=== PATIENT | male | born 1965 | race Caucasian/White ===

== ENCOUNTER → 2018-05-20 | Outpatient (CLI) | payer OTHER ==
[2018-05-20 18:17] LABS: Source, Urine Clean Catch
[2018-05-20 18:20] LABS: Bacteria Few /hpf; Red Blood Cells, Urine TNTC /hpf (0-2); Squamous Epithelial Cells Few /hpf (Few)
== END | disposition home or self-care (01) ==
LOC: LAB EV 18:12 → LAB SHORT 18:12
PROVIDERS: Physician Assistant
DX: R30.0 Dysuria (principal)
CPT/HCPCS: 81015; 87086

== ENCOUNTER 2018-06-12 09:30 | Emergency (ER) | payer OTHER ==
[~2018-06-12] VITALS: Ht 172.7 cm; Wt 63.5 kg
[2018-06-12 09:52] LABS: BASOPHILS ABSOLUTE AUTO 0.07 K/mm3 (0.00-0.23); BASOPHILS PERCENT AUTO 1 % (0-2); EOSINOPHILS ABSOLUTE AUTO 0.17 K/mm3 (0.00-0.68); EOSINOPHILS PERCENT AUTO 2 % (0-6); Hematocrit 43.1 % (37.0-53.0); Hemoglobin 14.1 g/dL (13.5-17.5); IMMATURE GRAN ABSOLUTE AUTO 0.05 K/mm3 (0.00-0.10); IMMATURE GRAN PERCENT AUTO 1 % (0-1); LYMPHOCYTES ABSOLUTE AUTO 2.28 K/mm3 (0.84-5.20); LYMPHOCYTES PERCENT AUTO 21 % (21-46); MONOCYTES ABSOLUTE AUTO 0.95 K/mm3 (0.16-1.47); MONOCYTES PERCENT AUTO 9 % (4-13); Mean Corpuscular HGB 29.9 pg (26.0-34.0); Mean Corpuscular HGB Conc 32.7 g/dL (31.5-36.5); Mean Corpuscular Volume 92 fL (80-100); Mean Platelet Volume 9.4 fL (9.1-12.4); NEUTROPHILS ABSOLUTE AUTO 7.48 K/mm3 (1.96-9.15); NEUTROPHILS PERCENT AUTO 68 % (41-73); Platelet Count 224 K/mm3 (150-400); RDW Coefficient Variation 14.5 % (11.7-14.2); Red Blood Cell Count 4.71 M/mm3 (4.30-5.90)
[2018-06-12 10:14] LABS: Alanine Aminotransfer (ALT/SGP 36 U/L (12-78); Albumin, Blood 3.8 g/dL (3.4-5.0); Alk Phos 85 U/L (50-136); Anion Gap 10 mmol/L (6-16); Aspartate Aminotrans (AST/SGOT 21 U/L (12-37); Bilirubin, Total 0.4 mg/dL (0.1-1.0); Blood Urea Nitrogen 23 mg/dL (8-24); Bun/Creatinine Ratio 19.5 (12.0-20.0); CO2, Blood 23 mmol/L (21-32); Calcium, Blood 9.1 mg/dL (8.5-10.1); Chloride, Blood 108 mmol/L (98-108); Creatinine, Blood 1.18 mg/dL (0.60-1.20); Glomerular Filtration Rate >60 (60-); Glucose, Blood 189 mg/dL (70-99); Potassium, Blood 3.5 mmol/L (3.5-5.5); Sodium, Blood 141 mmol/L (136-145); Total Protein, Blood 7.8 g/dL (6.4-8.2)
== END 2018-06-12 11:35 | disposition short-term general hospital (02) ==
LOC: ER 09:30
PROVIDERS: Internal Medicine
DX: T23.342A Burn of third degree of multiple left fingers (nail), including thumb, initial encounter (principal); T23.341A Burn of third degree of multiple right fingers (nail), including thumb, initial encounter; S00.03XA Contusion of scalp, initial encounter; T31.0 Burns involving less than 10% of body surface; W86.1XXA Exposure to industrial wiring, appliances and electrical machinery, initial encounter; Z23 Encounter for immunization
CPT/HCPCS: 70450; 73130; 80053; 85025; 90714; 93005; 93010; J1170; J2405; J7120

== ENCOUNTER 2018-12-15 08:09 | Day surgery (SDC) | payer OTHER ==
[~2018-12-15] VITALS: Ht 172.7 cm; Wt 62.8 kg
[2018-12-15] MEDS ORDERED: LOSARTAN-HCTZ1 EACH (09:11)
[2018-12-15] MEDS ORDERED: ABAT250V (09:11)
== END 2018-12-15 10:30 | disposition home or self-care (01) ==
LOC: ORSCSDS 08:09
PROVIDERS: Internal Medicine Gastroenterology
PROC: 0DBL8ZX Excision of Transverse Colon, Via Natural or Artificial Opening Endoscopic, Diagnostic (ICD-10-PCS; principal; 2018-12-15 09:45)
DX: Z12.11 Encounter for screening for malignant neoplasm of colon (principal); D12.3 Benign neoplasm of transverse colon; K57.30 Diverticulosis of large intestine without perforation or abscess without bleeding; K64.8 Other hemorrhoids; Z87.891 Personal history of nicotine dependence; J45.909 Unspecified asthma, uncomplicated; Z79.899 Other long term (current) drug therapy
CPT/HCPCS: 88305; J7120

== ENCOUNTER 2019-10-13 09:42 | Day surgery (SDC) | payer OTHER ==
[~2019-10-13] VITALS: Ht 172.7 cm; Wt 63.0 kg
[~2019-10-13 09:42] MED LIST: ABAT250V; AMLO10 PO; LOSARTAN-HCTZ1 EACH; ZESTORETIC 20-1 EACH PO
[2019-10-13] MEDS ORDERED: CLOP75 PO (16:41)
--- NOTE | 2019-10-13 18:27 | NUR ---
DISCHARGE PT AMBULATES TO RESTROOM WITH OUT ANY COMPLICATIONS. R FEMORAL SITE WITH NO BLEEDING, OOZING OR HEMATOMA. PT DENIES PAIN. PT STATES UNDERSTANDING OF DC INSTRUCTIONS AND SITE CARE INSTRUCTIONS. PT DENIES ANY QUESTIONS OR CONCERNS UPON DISCHARGE. IV DCD WITH CATH IN TACT. PT DCD IN WHEELCHAIR TO MAINENTERENCE WITH SISTER TO AWAIT RIDE FROM [facility]. PT STATES UNDERSTANDING OF TAKING NEW RX FOR PLAVIX.
== END 2019-10-13 23:06 | disposition home or self-care (01) ==
LOC: MHTC 09:42
DX: I70.213 Atherosclerosis of native arteries of extremities with intermittent claudication, bilateral legs (principal)
CPT/HCPCS: 37227; 75625; 75716; 75774; 85347; 99152; 99153; C1714; C1725; C1760; C1769; C1874; C1884; C1887; C1894; C2623; J1644; J2250; J2997; J3010; J7030; Q9967

== ENCOUNTER 2019-10-20 09:53 | Day surgery (SDC) | payer OTHER ==
[~2019-10-20] VITALS: Ht 165.1 cm; Wt 64.1 kg
[~2019-10-20 09:53] MED LIST changes: +CLOP75 PO
[2019-10-20 11:06] LABS: BASOPHILS ABSOLUTE AUTO 0.06 K/mm3 (0.00-0.23); BASOPHILS PERCENT AUTO 1 % (0-2); EOSINOPHILS ABSOLUTE AUTO 0.42 K/mm3 (0.00-0.68); EOSINOPHILS PERCENT AUTO 6 % (0-6); Hematocrit 41.5 % (37.0-53.0); Hemoglobin 13.1 g/dL (13.5-17.5); IMMATURE GRAN ABSOLUTE AUTO 0.01 K/mm3 (0.00-0.10); IMMATURE GRAN PERCENT AUTO 0 % (0-1); LYMPHOCYTES ABSOLUTE AUTO 1.52 K/mm3 (0.84-5.20); LYMPHOCYTES PERCENT AUTO 20 % (21-46); MONOCYTES ABSOLUTE AUTO 0.83 K/mm3 (0.16-1.47); MONOCYTES PERCENT AUTO 11 % (4-13); Mean Corpuscular HGB 27.7 pg (26.0-34.0); Mean Corpuscular HGB Conc 31.6 g/dL (31.5-36.5); Mean Corpuscular Volume 88 fL (80-100); NEUTROPHILS ABSOLUTE AUTO 4.65 K/mm3 (1.96-9.15); NEUTROPHILS PERCENT AUTO 62 % (41-73); Platelet Count 251 K/mm3 (150-400); RDW Standard Deviation 41.9 fL (35.1-46.3); Red Blood Cell Count 4.73 M/mm3 (4.30-5.90); White Blood Cell Count 7.49 K/mm3 (4.00-11.30)
[2019-10-20 11:15] LABS: Prothrombin Time Results 10.7 Sec (9.7-11.5)
[2019-10-20 11:24] LABS: Bun/Creatinine Ratio 22.1 (12.0-20.0); Calcium, Blood 9.2 mg/dL (8.5-10.1); Creatinine, Blood 1.4 mg/dL (0.60-1.20); Potassium, Blood 4.6 mmol/L (3.5-5.5)
--- NOTE | 2019-10-20 19:24 | NUR ---
REPORT TO HELEN WOOD TO ASSUME CARE
--- NOTE | 2019-10-20 19:25 | NUR ---
EXTENDED RECOVERY PT ARRIVED TO ICU THIS AFTERNOON FOR POST CATH RECOVERY. PT ALERT, ORIENTED AND FOLLOWING DIRECTIONS. VITALS STABLE. ASSESSMENT UNCHANGED FROM ARRIVAL. DR. KELLEY ROUNDED ON PATIENT SHORTLY AFTER ARRIVAL AND PT AND SISTER AGREEABLE TO PLAN FOR RECOVERY AND DISCHARGE HOME THIS EVENING IF STABLE. PT'S SISTER PLANS TO RETURN BY 8 PM. PT IN SUPINE POSITION SINCE ARRIVAL FOR POSTOP PRECAUTIONS. EDUCATED AND AGREEABLE. BOTH ACCESS SITES STABLE AND UNCHANGED. BEDSIDE REPORT WITH HELEN WOOD INCLUDED VISUALIZATION AND PALPATATION OF BOTH SITES.
--- NOTE | 2019-10-20 20:25 | NUR ---
DISCHARGE HOME ASSUMED CARE OF PT AT 1900. PT LAYING IN BED, AWAKE, ALERT, AND ORIENTED. PT DENIES PAIN OR DISCOMFORT. PT ON ROOM AIR, VITAL SIGNS STABLE. LEFT GROIN ACCESS SITE WITH SMALL 10CM HEMATOMA THAT IS UNCHANGED PER REPORT. SITE IS CLEAN AND DRY WITH OPSITE IN PLACE. LEFT POSTERIOR TIBIAL ACCESS SITE C/D/I. PT DANGLED AT BEDSIDE, SITE REMAINED STABLE. PT THEN AMBULATED IN UNIT WITHOUT DIFFICULTY. GROIN SITE REMAINS STABLE. DISCHARGE INSTRUCTIONS AND MEDS REVIEWED WITH PT AND PT VERBALIZED UNDERSTANDING. IV TO LAC DC'D. PT ESCORTED TO WAITING ROOM VIA WHEEL CHAIR TO WAIT FOR RIDE HOME AT 2024. ALL BELONGINGS TAKEN WITH PT.
== END 2019-10-20 20:25 | disposition home or self-care (01) ==
LOC: MHTC 09:53 → ICUW 15:41 → MHTC 20:25 → ICUW 20:25
PROVIDERS: Radiology Diagnostic Radiology
PROC: B41GZZZ Fluoroscopy of Left Lower Extremity Arteries (ICD-10-PCS; principal; 2019-10-20)
PROC: B41FZZZ Fluoroscopy of Right Lower Extremity Arteries (ICD-10-PCS; 2019-10-20)
DX: I70.213 Atherosclerosis of native arteries of extremities with intermittent claudication, bilateral legs (principal)
CPT/HCPCS: 37224; 75710; 76937; 80048; 85025; 85347; 85610; 99152; 99153; C1725; C1769; C1773; C1887; C1894; C2623; J1644; J2250; J3010; J7030; Q9967

== ENCOUNTER 2020-02-07 16:54 | Emergency (ER) | payer OTHER ==
[~2020-02-07] VITALS: Ht 182.9 cm; Wt 77.1 kg
== END 2020-02-07 18:02 | disposition home or self-care (01) ==
LOC: ER 16:54
DX: S01.81XA Laceration without foreign body of other part of head, initial encounter (principal); Z23 Encounter for immunization; Z79.899 Other long term (current) drug therapy; Z79.02 Long term (current) use of antithrombotics/antiplatelets; W01.190A Fall on same level from slipping, tripping and stumbling with subsequent striking against furniture, initial encounter
CPT/HCPCS: 90471; 90714; 99282-25

== ENCOUNTER 2020-02-08 13:02 | Inpatient (IN) | payer OTHER ==
[~2020-02-08] VITALS: Ht 165.1 cm; Wt 62.9 kg
--- NOTE | 2020-02-08 13:50 | NUR ---
PT WATCHING TV; CALL LIGHT IN REACH.
[2020-02-08 14:05] LABS: BASOPHILS ABSOLUTE AUTO 0.06 K/mm3 (0.00-0.23); BASOPHILS PERCENT AUTO 1 % (0-2); EOSINOPHILS ABSOLUTE AUTO 0.14 K/mm3 (0.00-0.68); EOSINOPHILS PERCENT AUTO 2 % (0-6); Hematocrit 42.2 % (37.0-53.0); Hemoglobin 13.3 g/dL (13.5-17.5); IMMATURE GRAN ABSOLUTE AUTO 0.01 K/mm3 (0.00-0.10); IMMATURE GRAN PERCENT AUTO 0 % (0-1); LYMPHOCYTES ABSOLUTE AUTO 1.63 K/mm3 (0.84-5.20); LYMPHOCYTES PERCENT AUTO 23 % (21-46); MONOCYTES ABSOLUTE AUTO 0.76 K/mm3 (0.16-1.47); MONOCYTES PERCENT AUTO 11 % (4-13); Mean Corpuscular HGB 27.6 pg (26.0-34.0); Mean Corpuscular HGB Conc 31.5 g/dL (31.5-36.5); Mean Corpuscular Volume 88 fL (80-100); Mean Platelet Volume 9.2 fL (9.1-12.4); NEUTROPHILS ABSOLUTE AUTO 4.42 K/mm3 (1.96-9.15); NEUTROPHILS PERCENT AUTO 63 % (41-73); Platelet Count 227 K/mm3 (150-400); RDW Coefficient Variation 14.5 % (11.7-14.2); RDW Standard Deviation 46.4 fL (35.1-46.3); Red Blood Cell Count 4.82 M/mm3 (4.30-5.90); White Blood Cell Count 7.02 K/mm3 (4.00-11.30)
[2020-02-08 14:22] LABS: Bun/Creatinine Ratio 23.9 (12.0-20.0); Calcium, Blood 8.9 mg/dL (8.5-10.1); Creatinine, Blood 2.13 mg/dL (0.60-1.20); Potassium, Blood 4.2 mmol/L (3.5-5.5)
[2020-02-08 14:24] LABS: International Normalized Ratio 0.99; Prothrombin Time Results 10.6 Sec (9.7-11.5)
--- NOTE | 2020-02-08 18:17 | NUR ---
ADMIT PT ARRIVED TO ICU 12 FROM [facility] VIA BED AT 1800. PT IS AWAKE, ALERT, AND ORIENTED. PT ANSWERS QUESTIONS APPROPRIATELY. DENIES PAIN OR NUMBNESS OR TINGLING. EXTREMITIES COOL. ARTERIAL SHEATH IN PLACE TO LEFT FEMORAL SITE WITH TPA INFUSING AT 1 MG/HR. PULSE STRONG TO LEFT FOOT. RIGHT PEDAL ACCESS SITE IS C/D/I WITH MARGE PAD IN PLACE. VITAL SIGNS STABLE. PT ON ROOM AIR. PT USED URINAL WELL TO VOID. GENNY MARRERO IN ROOM TO SEE PT AT THIS TIME. WILL CONTINUE TO MONITOR.
[2020-02-08 18:39] LABS: Source, Urine Clean Catch
[2020-02-08 18:49] LABS: Bilirubin, Urine Neg (Neg); Blood, Urine Neg (Neg); Glucose Qualitative, Urine Neg (Neg); Ketones, Urine 1+ (Neg); Leukocyte Esterase, Urine Neg (Neg); Nitrite, Urine Neg (Neg); Protein, Urine Neg (Neg); Urobilinogen, Urine NORM (Normal)
--- NOTE | 2020-02-08 19:00 | NUR ---
ASSUMED CARE ASSUMED CARE OF PATIENT. AWAKE AND ALERT. ORIENTED X 3 AND COOPERATIVE. ASSESSED BILATERAL LOWER LIMBS WITH OFF-GOING RN. LLE WITH FEMORAL ARTERIAL SHEATH IN PLACE. FAINT PEDAL PULSE NOTED. LLE IS PALE, BUT WARM. RLE PEDAL PULSE IS DIFFICULT TO ASSESS- WILL CHECK WITH DOPPLER. RLE IS PALE AND SLIGHTLY COOL. C/O TINGLING IN BOTH FEET AND STATES THAT THIS IS NOT NEW. DENIES C/O PAIN AT THIS TIME. RIGHT POSTERIOR TIBIAL DRSG D/I. ALTEPLASE INFUSING AT 1MG/HR VIA SHEATH. VOIDING WITHOUT DIFFICULTY. C/O BEING HUNGRY- WILL ORDER DINNER TRAY. MONITOR SHOWS SB-SR, RATE 55-60s. BP STABLE. RA SATS STABLE. SEE SHIFT ASSESSMENT FOR FULL ASSESSMENT.
--- NOTE | 2020-02-08 19:20 | NUR ---
HEPARIN GTT HEPARIN GTT STARTED AT 6CC/HR PER ORDER. LR 1L IV BOLUS STARTED.
[2020-02-08 19:26] LABS: Magnesium, Blood 2.5 mg/dL (1.6-2.4); Phosphorus, Blood 3.5 mg/dL (2.5-4.9)
[2020-02-08 19:27] LABS: Appearance, Urine Clear (Clear); Color, Urine Yellow (P-Yellow)
[2020-02-09 05:57] LABS: BASOPHILS ABSOLUTE AUTO 0.08 K/mm3 (0.00-0.23); BASOPHILS PERCENT AUTO 1 % (0-2); EOSINOPHILS ABSOLUTE AUTO 0.15 K/mm3 (0.00-0.68); EOSINOPHILS PERCENT AUTO 2 % (0-6); Hematocrit 42.7 % (37.0-53.0); Hemoglobin 13.9 g/dL (13.5-17.5); IMMATURE GRAN ABSOLUTE AUTO 0.03 K/mm3 (0.00-0.10); IMMATURE GRAN PERCENT AUTO 0 % (0-1); LYMPHOCYTES ABSOLUTE AUTO 0.98 K/mm3 (0.84-5.20); LYMPHOCYTES PERCENT AUTO 11 % (21-46); MONOCYTES ABSOLUTE AUTO 0.83 K/mm3 (0.16-1.47); MONOCYTES PERCENT AUTO 9 % (4-13); Mean Corpuscular HGB 28.3 pg (26.0-34.0); Mean Corpuscular HGB Conc 32.6 g/dL (31.5-36.5); Mean Corpuscular Volume 87 fL (80-100); Mean Platelet Volume 9.3 fL (9.1-12.4); NEUTROPHILS ABSOLUTE AUTO 6.94 K/mm3 (1.96-9.15); NEUTROPHILS PERCENT AUTO 77 % (41-73); Platelet Count 184 K/mm3 (150-400); RDW Coefficient Variation 14.6 % (11.7-14.2); RDW Standard Deviation 46.4 fL (35.1-46.3); Red Blood Cell Count 4.92 M/mm3 (4.30-5.90); White Blood Cell Count 9.01 K/mm3 (4.00-11.30)
--- NOTE | 2020-02-09 06:16 | NUR ---
SHIFT SUMMARY NO ACUTE CHANGES DURING NOC. SLEPT WHEN UNDISTURBED. ROUSES EASILY TO STIMULI. ALERT AND ORIENTED. NEURO CHECKS WNL. DENIES C/O PAIN. DENIES C/O LE TINGLING THIS AM. LEFT FEMORAL ARTERIAL SHEATH IN PLACE- SITE IS SOFT AND DRSG IS C/D/I. TPA INFUSING @ 0.5MG/HR PER ORDER. LLE IS WARM AND PINK. PEDAL PULSE STRONG. RLE WITH DRSG TO POSTERIOR TIBIAL- SMALL AMOUNT OF OLD BLOOD NOTED ON MARGE DRSG. RIGHT PEDAL PULSE WITH DOPPLER. FOOT IS WARMER THIS AM, BUT STILL PALE. HEPARIN INFUSING @ 6CC/HR PER ORDER VIA PERIPHERAL IV. LR AT 75CC/HR. VOIDS WITHOUT DIFFICULTY. NPO OF NOW FOR AM INCIDENT RESPONSE LEAD PROCEDURE. WILL REPORT TO DAY SHIFT RN WHEN AVAILABLE.
[2020-02-09 06:17] LABS: Alanine Aminotransfer (ALT/SGP 36 U/L (12-78); Albumin, Blood 3.7 g/dL (3.4-5.0); Alk Phos 97 U/L (50-136); Anion Gap 8 mmol/L (6-16); Aspartate Aminotrans (AST/SGOT 18 U/L (12-37); Bilirubin, Total 0.6 mg/dL (0.1-1.0); Blood Urea Nitrogen 33 mg/dL (8-24); Bun/Creatinine Ratio 23.1 (12.0-20.0); CHOL/HDL RATIO 2.6; CO2, Blood 22 mmol/L (21-32); Calcium, Blood 8.8 mg/dL (8.5-10.1); Chloride, Blood 106 mmol/L (98-108); Cholesterol 184 mg/dL (50-200); Creatinine, Blood 1.43 mg/dL (0.60-1.20); Globulin, Blood 3.8 g/dL (2.2-4.0); Glomerular Filtration Rate 55 (60-); Glucose, Blood 104 mg/dL (70-99); HDL Cholesterol 72 mg/dL (>39); LDL/HDL RATIO 1.3; Low Density Lipoprotein Chol 93 mg/dL (0-110); Potassium, Blood 4.4 mmol/L (3.5-5.5); Sodium, Blood 136 mmol/L (136-145); Total Protein, Blood 7.5 g/dL (6.4-8.2); Triglycerides 93 mg/dL (30-160); Very Low Density Lipoprot Chol 18 mg/dL (6-32)
--- NOTE | 2020-02-09 08:09 | NUR ---
INITIAL ASSESSMENT PATIENT ALERT AND ORIENTED X 4, FORGETFUL AT TIMES. PATIENT NEEDS REMINDERS ABOUT ACTIVITY RESTRICTIONS DUE TO L ARTERIAL FEM SHEATH IN PLACE. UPON ENTERING ROOM THIS MORNING, WITH GENERAL UTILITY MACHINE OPERATOR RN FOR REPORT, PATIENT SLEEPING ON STOMACH. PATIENT RE-EDUCATED ON NEED TO STAY ON BACK WITHOUT LIFTING HEAD OR LEGS. NO BLEEDING, BRUISING, HEMATOMA NOTED TO L FEM SITE. PATIENT DENIES PAIN OR N/T. PATIENT AFEBRILE. PATIENT SATTING 90% AND GREATER ON RA. LUNGS COARSE AND WHEEZY THROUGHOUT. PATIENT HAS OCCASIONAL, DRY COUGH AND STATES THAT HE HAS SAME COUGH EVERY AM. PATIENT IN SR, HR IN THE 60S. SBP 140S TO 160S. RADIAL PULSES 2+ IN STRENGTH. L PEDAL PULSE 2+ IN STRENGTH, L TIBIAL PULSE FAINT. R PEDAL AND TIBIAL PULSES DOPPLER. BILAT FEET PINK AND WARM WITH CAP REFILL LESS THAN 3 SECONDS. ABDOMEN SOFT, NONDISTENDED, NONTENDER, WITH HYPERACTIVE BS NOTED. LAST BM DOCUMENTED YESTERDAY. PATIENT NPO WILL BE HEADING BACK TO OXYHYDROGEN WELDER TODAY. PATIENT USING BEDSIDE URINAL INDEPENDENTLY; URINE LIGHT YELLOW IN COLOR. SKIN FLUSHED. R THUMB AND INDEX FINGERS AMPUTATED. LACERATION/ ABRASION NOTED TO FOREHEAD AND ABRASIONS TO RLE; PATIENT STATES THAT HIS DOGS LEASH GOT WRAPPED AROUND HIM AT HOME AND HE FELL. TPA INFUSING AT 0.5 MG/ HOUR, LR AT 75 MLS/ HOUR AND HEPARIN INFUSING AT 6 MLS/ HOUR. BED LOW, CALL LIGHT IN REACH. WILL CONTINUE TO MONITOR PATIENT FREQUENTLY THROUGHOUT SHIFT.
--- NOTE | 2020-02-09 10:05 | NUR ---
DR. KELLEY CALLED TO ASK ABOUT TPA. INFORMED THAT TPA HAS BEEN INFUSING AT 0.5 MG/ HOUR FOR [address] KELLEY STATED TO STOP TPA AND CHANGE HEPARIN INFUSION FROM PERIPHERAL SITE TO FEM SHEATH. UNSURE WHEN HE WILL BE ABLE TO TAKE PATIENT TO SOLAR DESIGNER/INSTALLER TODAY.
--- NOTE | 2020-02-09 10:15 | NUR ---
DR. MORGAN IN TO SEE PATIENT. INFORMED OF PATIENT'S SBP IN 160S. INFORMED THAT PRN LABETALOL JUST GIVEN. INFORMED ABOUT CONVERSATION WITH DR. KELLEY AND STOPPING OF TPA AND CHANGING HEPARIN FROM PERIPHERAL SITE TO SHEATH. DRESSING TO FOREHEAD REMOVED, AREA CLEANSED, STERI STRIPS AND NEW DRESSING APPLIED.
--- NOTE | 2020-02-09 10:50 | NUR ---
PATIENT TAKEN TO GROUND OPERATIONS SUPERVISOR.
--- NOTE | 2020-02-09 13:10 | NUR ---
PATIENT BACK FROM [facility]REL RIFLER BROACH. ANGIOSEAL AND TEGADERM TO LEFT FEM SITE. SITE WNL- NO BLEEDING, BRUISING, HEMATOMA NOTED. NO CHANGES NOTED TO BLES FROM BEFORE BARREL RIFLER BROACH ASSESSMENT. PATIENT HAS NO COMPLAINTS AT THIS TIME. HEPARIN DC'D. DR. KELLEY DOWN TO SPEAK WITH NURSE. DR. KELLEY STATED PATIENT CAN GO HOME AND WILL NEED OUTPATIENT PROCEDURE. DR. KELLEY STATED TO START PATIENT ON XARELTO 15 MG PO BID NOW. WILL CONTINUE TO MONITOR.
--- NOTE | 2020-02-09 14:24 | NUR ---
SISTER, MARY KATE, CALLED AND UPDATED ON PATIENT STATUS. MARY KATE WILL BE THE ONE TO PICK PATIENT UP THIS AFTERNOON IF FEM SITE REMAINS STABLE.
[2020-02-09] MEDS ORDERED: XARELTO15 MG PO (14:49)
[2020-02-09] MEDS ORDERED: SENN187 PO (14:49)
--- NOTE | 2020-02-09 15:51 | NUR ---
DR. MORGAN CALLED AND INFORMED THAT PATIENT NOW VOIDING CRANBERRY COLORED URINE AFTER RETURN FROM [employer] ABATEMENT WORKER. DOCTOR STATED TO HAVE PATIENT INFORM PCP UPON FOLLOW-UP WITHIN A WEEK THAT HE HAD BLOOD IN URINE. DOCTOR STATED SHE IS NOT CONCERNED ABOUT URINE COLOR CHANGE AT THIS TIME.
--- NOTE | 2020-02-09 16:27 | NUR ---
SHIFT SUMMARY PATIENT REMAINED ALERT AND ORIENTED, ALTHOUGH FORGETFUL AT TIMES. PATIENT REMAINED AFEBRILE. PATIENT HAD NO COMPLAINTS OF PAIN THIS SHIFT. PATIENT REMAINED SATTING 90% AND GREATER ON RA. LUNGS REMAINED COARSE AND WHEEZY THROUGHOUT. PATIENT REMAINED IN SB TO SR, HR 50S TO 60S. SBP RANGED FROM 130S TO 180S. BP STABLE AT THIS TIME. PATIENT GIVEN PRN LABETOLOL X1 BY THIS NURSE. RIGHT PEDAL PULSE REMAINS DOPPLER. R FOOT REMAINS WARM, PINK AND WITH CAP REFILL LESS THAN 3 SECONDS. L TIBIAL PULSE 1+ AND L PEDAL PULSE 2+. L FOOT WARM, PINK, WITH CAP REFILL LESS THAN 3 SECONDS. PATIENT ABLE TO EAT AFTER RETURNING FROM MUNITIONS WORKER, HOWEVER DID NOT HAVE MUCH OF AN APPETITE. PATIENT DID NOT HAVE BM THIS SHIFT. PATIENT VOIDING LIGHT YELLOW URINE INTO URINAL BEFORE MUNITIONS WORKER AND CRANBERRY COLORED AFTER RETURNING FROM MUNITIONS WORKER. DR. MOGRAN INFORMED AND INSTRUCTED TO HAVE PATIENT INFORM PCP WHEN SEES THIS WEEK. L FEM SHEATH REMOVED IN MUNITIONS WORKER. ANGIOSEAL AND TEGADERM PLACED BY MUNITIONS WORKER. SITE REMAINS WNL- NO BLEEDING, BRUISING, HEMATOMA NOTED. FOREHEAD LACERATION DRESSING REMAINS C/D/I. IV REMOVED. PATIENT GIVEN ALL DISCHARGE INFORMATION. GROIN SURGICAL SITE CARE INFO GIVEN. XARELTO INFORMATION GIVEN IS NEW MEDICATION. FAMILY'S NEIGHBOR COMING TO PICK PATIENT UP AT THIS TIME.
--- NOTE | 2020-02-09 16:40 | NUR ---
PATIENT TAKEN OUT TO FAMILY'S NEIGHBOR, WAITING OUTIDE OF PATIENT ENTRANCE. PATIENT SUCCESSFULLY DISCHARGED.
== END 2020-02-09 16:46 | disposition home or self-care (01) | DRG 253 ==
LOC: MHTC 13:02 → ICUW 18:18
PROVIDERS: Nurse Practitioner Acute Care; Radiology Diagnostic Radiology; ADMIT Internal Medicine
PROC: 047K341 Dilation of Right Femoral Artery with Drug-eluting Intraluminal Device, using Drug-Coated Balloon, Percutaneous Approach (ICD-10-PCS; principal; 2020-02-08)
PROC: B41F1ZZ Fluoroscopy of Right Lower Extremity Arteries using Low Osmolar Contrast (ICD-10-PCS; 2020-02-08)
PROC: 3E05317 Introduction of Other Thrombolytic into Peripheral Artery, Percutaneous Approach (ICD-10-PCS; 2020-02-09)
DX: I70.211 Atherosclerosis of native arteries of extremities with intermittent claudication, right leg (principal); I74.3 Embolism and thrombosis of arteries of the lower extremities; N17.9 Acute kidney failure, unspecified; I10 Essential (primary) hypertension; F41.1 Generalized anxiety disorder; Z87.891 Personal history of nicotine dependence; J45.20 Mild intermittent asthma, uncomplicated; E78.5 Hyperlipidemia, unspecified; S01.91XA Laceration without foreign body of unspecified part of head, initial encounter; W19.XXXA Unspecified fall, initial encounter
CPT/HCPCS: 36140; 36415; 37184; 37211; 37214; 37224; 37226; 75716; 75774; 76937; 80048; 80053; 80061; 81003; 82550; 83036; 83735; 84100; 85025; 85347; 85384; 85610; 94640; 99152; 99153; A9270-GY; C1725; C1753; C1757; C1760; C1769; C1874; C1887; C1894; C2623; J0360; J1644; J2250; J2270; J2997; J3010; J7030; J7040; J7050; J7120; Q9967

== ENCOUNTER 2020-02-17 14:33 | Emergency (ER) | payer OTHER ==
[~2020-02-17] VITALS: Ht 172.7 cm; Wt 62.6 kg
[~2020-02-17 14:33] MED LIST changes: +SENN187 PO; +XARELTO15 MG PO
[2020-02-17 15:00] LABS: BASOPHILS ABSOLUTE AUTO 0.06 K/mm3 (0.00-0.23); BASOPHILS PERCENT AUTO 1 % (0-2); EOSINOPHILS ABSOLUTE AUTO 0.33 K/mm3 (0.00-0.68); EOSINOPHILS PERCENT AUTO 4 % (0-6); Hematocrit 34.2 % (37.0-53.0); Hemoglobin 10.8 g/dL (13.5-17.5); IMMATURE GRAN ABSOLUTE AUTO 0.03 K/mm3 (0.00-0.10); IMMATURE GRAN PERCENT AUTO 0 % (0-1); LYMPHOCYTES ABSOLUTE AUTO 1.84 K/mm3 (0.84-5.20); LYMPHOCYTES PERCENT AUTO 20 % (21-46); MONOCYTES ABSOLUTE AUTO 0.77 K/mm3 (0.16-1.47); MONOCYTES PERCENT AUTO 8 % (4-13); Mean Corpuscular HGB 27.8 pg (26.0-34.0); Mean Corpuscular HGB Conc 31.6 g/dL (31.5-36.5); Mean Corpuscular Volume 88 fL (80-100); Mean Platelet Volume 8.9 fL (9.1-12.4); NEUTROPHILS ABSOLUTE AUTO 6.23 K/mm3 (1.96-9.15); NEUTROPHILS PERCENT AUTO 67 % (41-73); Platelet Count 398 K/mm3 (150-400); RDW Coefficient Variation 14.1 % (11.7-14.2); RDW Standard Deviation 45.4 fL (35.1-46.3); Red Blood Cell Count 3.89 M/mm3 (4.30-5.90); White Blood Cell Count 9.26 K/mm3 (4.00-11.30)
[2020-02-17 15:23] LABS: Anion Gap 7 mmol/L (6-16); Blood Urea Nitrogen 18 mg/dL (8-24); Bun/Creatinine Ratio 15.1 (12.0-20.0); CO2, Blood 26 mmol/L (21-32); Calcium, Blood 8.9 mg/dL (8.5-10.1); Chloride, Blood 108 mmol/L (98-108); Creatinine, Blood 1.19 mg/dL (0.60-1.20); Glomerular Filtration Rate >60 (60-); Glucose, Blood 159 mg/dL (70-99); Potassium, Blood 3.8 mmol/L (3.5-5.5); Sodium, Blood 141 mmol/L (136-145)
[2020-02-17] MEDS ORDERED: Norco 5-325 Ta1 EACH PO (18:30)
== END 2020-02-17 18:36 | disposition home or self-care (01) ==
LOC: ER 14:33
PROVIDERS: Physician Assistant
DX: I77.9 Disorder of arteries and arterioles, unspecified (principal); Z79.899 Other long term (current) drug therapy; Z87.891 Personal history of nicotine dependence
CPT/HCPCS: 36415; 80048; 85025; 93926; 99284-25

== ENCOUNTER 2023-09-08 16:53 | Emergency (ER) | payer OTHER ==
[~2023-09-08] VITALS: Ht 172.7 cm; Wt 61.2 kg
[~2023-09-08 16:53] MED LIST changes: +Norco 5-325 Ta1 EACH PO
[2023-09-08 18:37] LABS: BASOPHILS ABSOLUTE AUTO 0.08 K/mm3 (0.00-0.23); BASOPHILS PERCENT AUTO 1 % (0-2); EOSINOPHILS ABSOLUTE AUTO 0.18 K/mm3 (0.00-0.68); EOSINOPHILS PERCENT AUTO 2 % (0-6); Hematocrit 44.7 % (37.0-53.0); Hemoglobin 14.5 g/dL (13.5-17.5); IMMATURE GRAN ABSOLUTE AUTO 0.02 K/mm3 (0.00-0.10); IMMATURE GRAN PERCENT AUTO 0 % (0-1); LYMPHOCYTES ABSOLUTE AUTO 1.63 K/mm3 (0.84-5.20); LYMPHOCYTES PERCENT AUTO 21 % (21-46); MONOCYTES ABSOLUTE AUTO 0.57 K/mm3 (0.16-1.47); MONOCYTES PERCENT AUTO 7 % (4-13); Mean Corpuscular HGB 28.8 pg (26.0-34.0); Mean Corpuscular HGB Conc 32.4 g/dL (31.5-36.5); Mean Corpuscular Volume 89 fL (80-100); Mean Platelet Volume 9.4 fL (9.1-12.4); NEUTROPHILS ABSOLUTE AUTO 5.44 K/mm3 (1.96-9.15); NEUTROPHILS PERCENT AUTO 69 % (41-73); Platelet Count 188 K/mm3 (150-400); RDW Coefficient Variation 14.2 % (11.7-14.2); RDW Standard Deviation 46.3 fL (35.1-46.3); Red Blood Cell Count 5.03 M/mm3 (4.30-5.90); White Blood Cell Count 7.92 K/mm3 (4.00-11.30)
[2023-09-08 18:56] LABS: Albumin, Blood 3.8 g/dL (3.4-5.0); Albumin/Globulin Ratio 1.1 (0.8-1.8); Bilirubin, Total 0.3 mg/dL (0.1-1.0); Creatinine, Blood 1.5 mg/dL (0.60-1.20); Globulin, Blood 3.6 g/dL (2.2-4.0); Magnesium, Blood 2.5 mg/dL (1.6-2.4); Potassium, Blood 4.3 mmol/L (3.5-5.5); Total Protein, Blood 7.4 g/dL (6.4-8.2)
[2023-09-08 21:30] VITALS: BP 145/89
== END 2023-09-08 21:46 | disposition home or self-care (01) ==
LOC: ER 16:53
PROVIDERS: Physician Assistant
DX: R41.0 Disorientation, unspecified (principal); R00.1 Bradycardia, unspecified; Z79.899 Other long term (current) drug therapy; Z79.01 Long term (current) use of anticoagulants; Z87.891 Personal history of nicotine dependence
CPT/HCPCS: 70450; 80053; 83735; 85025; 93005; 93010; 99284-25

== ENCOUNTER → 2024-07-17 | Outpatient (CLI) | payer OTHER ==
[2024-07-19 14:55] LABS: Stool Occult Bld Immuno 1 Negative (NEGATIVE)
== END ==
LOC: LAB 13:29 → LAB SHORT 13:29
PROVIDERS: Nurse Practitioner Family
DX: R63.4 Abnormal weight loss (principal)
CPT/HCPCS: G0328